=== PATIENT | male | born 1935 | race Caucasian/White ===

== ENCOUNTER → 2017-01-06 | Outpatient (CLI) | payer MEDICARE, MEDICAID ==
[2011-11-20 10:50] VITALS: BP 162/68
[~2017-01-06] MED LIST: ASPIRIN E.C. 8181 M1 PO; CELEBREX200 MG PO; CIPRO 500MG TA500 MG PO; FLOMAX0.4 MG PO; LYRICA75 MG PO; PROSCAR 5MG5 MG PO; QUININE SULFAT300 MG PO; VITAMIN D2000 I1 PO
== END ==
LOC: LAB 16:28
DX: I15.9 Secondary hypertension, unspecified (principal)

== ENCOUNTER 2019-05-05 13:55 | Emergency (ER) | payer MEDICARE, MEDICAID ==
[~2019-05-05] VITALS: Wt 97.3 kg
[2019-05-05 14:36] LABS: HEMATOCRIT 34.1 % (42.0-52.0); HEMOGLOBIN 10.8 g/dL (13.5-18.0); MEAN CELL VOLUME 92 fl (78-100); MEAN CORPUSCULAR HEMOGLOBIN 29 pg (27-31); MEAN CORPUSCULAR HGB CONC 32 g/dL (33-37); MEAN PLATELET VOLUME 11.3 fl (7.4-10.4); PLATELET COUNT 100 K/mm3 (130-400); RED BLOOD COUNT 3.72 M/mm3 (4.20-5.60); RED CELL DISTRIBUTION WIDTH 14.7 % (11.5-14.5); WHITE BLOOD COUNT 4.8 K/mm3 (4.8-10.8)
[2019-05-05 14:42] LABS: ALBUMIN 3.7 g/dL (3.4-4.8); POTASSIUM 3.7 mmol/L (3.5-5.1)
[2019-05-05 14:43] LABS: CALCIUM 9.3 mg/dL (8.3-10.5)
[2019-05-05 14:45] LABS: TOTAL PROTEIN 6.8 g/dL (6.2-8.1)
[2019-05-05 14:46] LABS: TOTAL BILIRUBIN 3.1 mg/dL (0.2-1.2)
[2019-05-05] MEDS ORDERED: CARVEDILOL25 MG PO (14:49)
[2019-05-05] MEDS ORDERED: MASON NATURAL325 MG PO (14:50)
[2019-05-05] MEDS ORDERED: NORVASC 10MG10 MG PO (14:50)
[2019-05-05] MEDS ORDERED: ROPINIROLE HYD0.5 MG PO (14:52)
[2019-05-05] MEDS ORDERED: HYGROTON 2525 MG/TAB PO (14:53)
[2019-05-05] MEDS ORDERED: PREGABALIN75 MG PO (14:53)
[2019-05-05] MEDS ORDERED: VITAMIN D32000 IU PO (14:54)
[2019-05-05 15:40] LABS: PH-URINE 5.5 (5.0 - 8.0); URINE APPEARANCE HAZY; URINE COLOR DK YELLOW; URINE PROTEIN(semi-quant) TRACE mg/dL (NEGATIVE)
[2019-05-05 15:41] LABS: URINE BILIRUBIN 1+ (NEGATIVE); URINE BLOOD 50 ery/uL (NEGATIVE); URINE GLUCOSE NEGATIVE (NEGATIVE); URINE KETONE NEGATIVE (NEGATIVE); URINE LEUKOCYTE ESTERASE NEGATIVE (NEGATIVE); URINE NITRATE NEGATIVE (NEGATIVE); URINE UROBILINOGEN 1 mg/dL (NORMAL); URINE WBC 0-1 /hpf (0-3)
[2019-05-05 15:42] LABS: BAND 1 % (0-10); LYMPHOCYTE 19 % (20-51); MONOCYTE 10 % (3-10); NEUTROPHILS 68 % (42-75)
[2019-05-05 18:51] VITALS: BP 193/86
== END 2019-05-05 19:19 | disposition home or self-care (01) ==
LOC: ED 13:55
PROVIDERS: Family Medicine
DX: D64.9 Anemia, unspecified (principal); D61.818 Other pancytopenia; R94.5 Abnormal results of liver function studies; I48.91 Unspecified atrial fibrillation; I10 Essential (primary) hypertension; Z95.0 Presence of cardiac pacemaker; Z98.890 Other specified postprocedural states; Z79.82 Long term (current) use of aspirin
CPT/HCPCS: J7030

== ENCOUNTER 2020-01-21 10:15 | Emergency (ER) | payer MEDICARE, MEDICAID ==
[~2020-01-21] VITALS: Ht 167.6 cm; Wt 99.0 kg
[~2020-01-21 10:15] MED LIST changes: -ASPIRIN E.C. 8181 M1 PO; +ASPIRIN E.C. 8181 MG PO; +CARVEDILOL25 MG PO; +HYGROTON 2525 MG/TAB PO; +MASON NATURAL325 MG PO; +NORVASC 10MG10 MG PO; +PREGABALIN75 MG PO; -PROSCAR 5MG5 MG PO; +PROSCAR PO; +ROPINIROLE HYD0.5 MG PO; +VITAMIN D325 MC7
[2020-01-21 11:03] LABS: EOS # 0.2 (0.04-0.40); EOS % 1.3 % (0.0-4.0); HEMATOCRIT 38.6 % (42.0-52.0); LYMPH# 2.2 (1.50-4.00); MEAN CELL VOLUME 88 fl (78-100); MEAN CORPUSCULAR HEMOGLOBIN 27 pg (27-31); MEAN CORPUSCULAR HGB CONC 31 g/dL (33-37); MEAN PLATELET VOLUME 11.3 fl (7.4-10.4); MONO # 0.6 (0.20-0.80); NEU # 8.2 (1.40-6.50); PLATELET COUNT 184 K/mm3 (130-400); RED BLOOD COUNT 4.41 M/mm3 (4.20-5.60); RED CELL DISTRIBUTION WIDTH 14.7 % (11.5-14.5); WHITE BLOOD COUNT 11.2 K/mm3 (4.8-10.8)
[2020-01-21 11:14] LABS: ALBUMIN 4.2 g/dL (3.4-4.8)
[2020-01-21 11:16] LABS: CALCIUM 8.8 mg/dL (8.3-10.5)
[2020-01-21 11:17] LABS: TOTAL PROTEIN 7.6 g/dL (6.2-8.1)
[2020-01-21 11:19] LABS: TOTAL BILIRUBIN 0.7 mg/dL (0.2-1.2)
[2020-01-21 11:32] LABS: TROPONIN-I 0.04 ng/mL (<0.030)
[2020-01-21 11:56] LABS: D-DIMER 1.84 mg/L FEU (0.15-0.50)
[2020-01-21] MEDS ORDERED: COZAAR25 M1 PO (12:05)
[2020-01-21] MEDS ORDERED: APRESOLINE 25MG25 MG PO (12:08)
[2020-01-21] MEDS ORDERED: TRAMADOL 50 MG TAB PO (12:13)
[2020-01-21] MEDS ORDERED: CELECOXIB100 M1 PO (12:14)
[2020-01-21] MEDS ORDERED: FINASTERIDE5 M1 PO (12:14)
[2020-01-21] MEDS ORDERED: LOSARTAN POTAS100 MG PO (12:16)
[2020-01-21] MEDS ORDERED: HYGROTON 2525 MG/TAB PO (12:18)
[2020-01-21 13:51] LABS: PH-URINE 5.5 (5.0 - 8.0); URINE APPEARANCE CLEAR; URINE COLOR YELLOW; URINE PROTEIN(semi-quant) TRACE mg/dL (NEGATIVE)
[2020-01-21 13:52] LABS: URINE BILIRUBIN 2+ (NEGATIVE); URINE BLOOD NEGATIVE (NEGATIVE); URINE GLUCOSE NEGATIVE (NEGATIVE); URINE KETONE NEGATIVE (NEGATIVE); URINE LEUKOCYTE ESTERASE TRACE (NEGATIVE); URINE NITRATE NEGATIVE (NEGATIVE); URINE UROBILINOGEN NORMAL (NORMAL)
[2020-01-21 13:53] LABS: URINE MUCUS PRESENT (NOT PRESENT)
[2020-01-21 14:39] VITALS: BP 110/84
== END 2020-01-21 15:19 | disposition short-term general hospital (02) ==
LOC: ED 10:24
PROVIDERS: Internal Medicine
DX: R06.03 Acute respiratory distress (principal); I11.0 Hypertensive heart disease with heart failure; I50.9 Heart failure, unspecified; Z20.828 Contact with and (suspected) exposure to other viral communicable diseases; Z79.82 Long term (current) use of aspirin; Z85.46 Personal history of malignant neoplasm of prostate; Z86.73 Personal history of transient ischemic attack (TIA), and cerebral infarction without residual deficits; Z95.0 Presence of cardiac pacemaker
CPT/HCPCS: A4618; J0696; J1815; J1940; J2270; J7030